=== PATIENT | female | born 1975 | race Caucasian/White ===

== ENCOUNTER 2016-11-23 10:09 | Emergency (ER) | payer MEDICARE, MEDICAID ==
--- NOTE | 2016-11-23 11:38 | UC ---
Throat Pain/Nasal Frandy HPI - HPI Summary HPI Summary: Patient has had sore throat, for the past few days, today left sided sinus pressure, pain behind eye in in the left ear. - History of Current Complaint Chief Complaint: UCGeneralIllness Stated Complaint: SORE THROAT,SINUS,EAR PAIN Time Seen by Provider: 11/23/16 11:08 Hx Obtained From: Patient Hx Last Menstrual Period: 11/20/16 ?: No Onset/Duration: Sudden Onset, Lasting Days Severity: Severe Associated Signs & Symptoms: Positive: Dysphagia, Sinus Discomfort - Epiglottits Risk Factors Epiglottis Risk Factors: Negative - Allergies/Home Medications Allergies/Adverse Reactions: Allergies Allergy/AdvReac Type Severity Reaction Status Date / Time Diphenhydramine AdvReac Severe Heart race Verified 11/29/15 14:49 [From Benadryl] Ketorolac Tromethamine AdvReac Severe migraines Verified 11/29/15 14:49 [From Toradol] Metoclopramide [From Reglan] AdvReac Severe heart Verified 11/29/15 14:49 race, anxiety Zolpidem [From Ambien] AdvReac Severe DISORENTATI Verified 11/29/15 14:49 ON Eszopiclone [From Lunesta] AdvReac Intermediate DISORENTATI Verified 11/29/15 14 :49 ON Ibuprofen AdvReac Abdominal Verified 11/29/15 14:49 Pain seasonal allergy Allergy Eyes Uncoded 11/29/15 14:49 Itchy/Swollen/Red/Watery avoiding acetaminophen due AdvReac Unknown Uncoded 11/29/15 14:49 to overu Reaction Details Home Medications: Home Medications Albuterol/Ipratropium RESP(NF) [Combivent Respimat(NF)] 1 aer IN DAILY 11/23/16 [History Confirmed 11/23/16] Cetirizine* [ZyrTEC 10 MG TAB*] 10 mg PO DAILY 11/23/16 [History Confirmed 11/23] PMH/Surg Hx/FS Hx/Imm Hx Previously Healthy: Yes Endocrine History Of: Denies: Diabetes, Thyroid Disease Cardiovascular History Of: Denies: Cardiac Disorders, Hypertension, Pacemaker/ICD Respiratory History Of: Reports: COPD, Asthma GI/ History Of: Denies: Ulcer, Renal Disease - Surgical History Surgical History: Yes Surgery Procedure, Year, and Place: Tubal ligation,,colonoscopy, endoscopy,saliva gland cyst removed, PE tubes, ABDOMINAL ARTHROSCOPIC SX. - Family History Known Family History: Positive: Unknown - Social History Alcohol Use: None Alcohol Amount: states has not had ETOH is "quite awhile" Substance Use Type: None Substance Use Comment - Amount & Last Used: unknown Smoking Status (MU): Former Smoker Type: Cigarettes Amount Used/How Often: 6 cigarettes daily Length of Time of Smoking/Using Tobacco: 28 yrs Have You Smoked in the Last Year: Yes When Did the Patient Quit Smoking/Using Tobacco: 1 year ago Household Exposure Type: Cigarettes - Immunization History Most Recent Influenza Vaccination: no Most Recent Tetanus Shot: within 5 years Review of Systems Constitutional: Negative Skin: Negative Eyes: Negative ENT: Dental Pain, Sore Throat, Ear Ache, Nasal Discharge Respiratory: Negative Cardiovascular: Negative Gastrointestinal: Negative Genitourinary: Negative Motor: Negative Neurovascular: Negative Musculoskeletal: Negative Neurological: Negative Psychological: Negative All Other Systems Reviewed And Are Negative: Yes Physical Exam Triage Information Reviewed: Yes Appearance: Well-Nourished, Ill-Appearing, Pain Distress Vital Signs: Initial Vital Signs Temp 97.9 F 11/23/16 10:45 Pulse 68 11/23/16 10:45 Resp 16 11/23/16 10:45 BP 92/61 11/23/16 10:45 Pulse Ox 100 11/23/16 10:45 Vital Signs Reviewed: Yes Eye Exam: Normal Eyes: Positive: Conjunctiva Clear ENT: Positive: Pharyngeal erythema, Nasal congestion, Nasal drainage, TM bulging Dental Exam: Normal Neck exam: Normal Neck: Positive: Supple, Nontender, No Lymphadenopathy Respiratory Exam: Normal Respiratory: Positive: Chest non-tender, Lungs clear, Normal breath sounds Cardiovascular Exam: Normal Cardiovascular: Positive: RRR, No Murmur, Pulses Normal Abdominal Exam: Normal Abdomen Description: Positive: Nontender, No Organomegaly, Soft Bowel Sounds: Positive: Present Musculoskeletal Exam: Normal Musculoskeletal: Positive: Strength Intact, ROM Intact, No Edema Neurological Exam: Normal Neurological: Positive: Alert, Muscle Tone Normal Psychological Exam: Normal Skin Exam: Normal Throat Pain/Nasal Course/Dx - Course Course Of Treatment: hx obtained, exam performed, meds reviewed, prescribed augmentin for sinusitis - Differential Dx/Diagnosis Differential Diagnosis/HQI/PQRI: Influenza, Laryngitis, Otitis Media, Pharyngitis, Sinusitis, URI Provider Diagnoses: sinusitis. ear pain. pharyngitis Discharge - Discharge Plan Condition: Stable Disposition: HOME Prescriptions: Amoxicillin/Clavulanate TAB* [Augmentin TAB 875*] 875 mg PO BID #20 tab Patient Education Materials: Sinusitis (ED) Referrals: Naun Archuleta MD [Primary Care Provider] - Additional Instructions: Take the medication as prescribed. Increase your fluid intake. ibuprofen for pain. and heat may help relieve the pain as well. follow up with any increasing symptoms.
[2016-11-23 11:48] VITALS: BP 142/85
== END 2016-11-23 11:46 | disposition home or self-care (01) ==
LOC: UCCORT 10:09
DX: J32.9 Chronic sinusitis, unspecified (principal); H92.02 Otalgia, left ear; J02.9 Acute pharyngitis, unspecified; Z88.5 Allergy status to narcotic agent; Z88.6 Allergy status to analgesic agent; Z88.8 Allergy status to other drugs, medicaments and biological substances; J44.9 Chronic obstructive pulmonary disease, unspecified; J45.909 Unspecified asthma, uncomplicated; R03.0 Elevated blood-pressure reading, without diagnosis of hypertension; Z87.891 Personal history of nicotine dependence
CPT/HCPCS: 99212; G0463

== ENCOUNTER 2017-02-03 18:05 | Emergency (ER) | payer MEDICARE, MEDICAID ==
[2017-02-03 19:01] VITALS: BP 91/59
--- NOTE | 2017-02-03 19:23 | UC ---
Throat Pain/Nasal Frandy HPI - HPI Summary HPI Summary: Ten days of congestion, cough, sinus pressure. This morning woke up with left eye irritation and discharge. No fever. No trauma. No loss of vision. - History of Current Complaint Chief Complaint: UCEye Stated Complaint: CONGESTION,SORE THROAT, EYE Time Seen by Provider: 02/03/17 18:49 Hx Obtained From: Patient Hx Last Menstrual Period: 01/18/17 ?: Yes Onset/Duration: Gradual Onset, Lasting Weeks, Still Present Severity: Mild Cough: Nonproductive Associated Signs & Symptoms: Positive: Hoarseness, Sinus Discomfort, Nasal Discharge - Epiglottits Risk Factors Epiglottis Risk Factors: Negative - Allergies/Home Medications Allergies/Adverse Reactions: Allergies Allergy/AdvReac Type Severity Reaction Status Date / Time Diphenhydramine AdvReac Severe Heart race Verified 11/29/15 14:49 [From Benadryl] Ketorolac Tromethamine AdvReac Severe migraines Verified 11/29/15 14:49 [From Toradol] Metoclopramide [From Reglan] AdvReac Severe heart Verified 11/29/15 14:49 race, anxiety Zolpidem [From Ambien] AdvReac Severe DISORENTATI Verified 11/29/15 14:49 ON Eszopiclone [From Lunesta] AdvReac Intermediate DISORENTATI Verified 11/29/15 14 :49 ON Ibuprofen AdvReac Abdominal Verified 11/29/15 14:49 Pain seasonal allergy Allergy Eyes Uncoded 11/29/15 14:49 Itchy/Swollen/Red/Watery avoiding acetaminophen due AdvReac Unknown Uncoded 11/29/15 14:49 to overu Reaction Details PMH/Surg Hx/FS Hx/Imm Hx Previously Healthy: Yes Endocrine History Of: Denies: Diabetes, Thyroid Disease Cardiovascular History Of: Denies: Cardiac Disorders, Hypertension, Pacemaker/ICD Respiratory History Of: Reports: COPD, Asthma GI/ History Of: Denies: Ulcer, Renal Disease - Surgical History Surgical History: Yes Surgery Procedure, Year, and Place: Tubal ligation,,colonoscopy, endoscopy,saliva gland cyst removed, PE tubes, ABDOMINAL ARTHROSCOPIC SX. - Family History Known Family History: Positive: Unknown Negative: Respiratory Disease - Social History Occupation: Employed Full-time Lives: With Family Alcohol Use: None Alcohol Amount: states has not had ETOH is "quite awhile" Substance Use Type: None Substance Use Comment - Amount & Last Used: unknown Smoking Status (MU): Former Smoker Type: Cigarettes Amount Used/How Often: 6 cigarettes daily Length of Time of Smoking/Using Tobacco: 28 yrs Have You Smoked in the Last Year: Yes When Did the Patient Quit Smoking/Using Tobacco: 1 year ago Household Exposure Type: Cigarettes - Immunization History Most Recent Influenza Vaccination: no Most Recent Tetanus Shot: within 5 years Review of Systems Constitutional: Negative Skin: Negative Eyes: Drainage, Eye Redness ENT: Sore Throat, Ear Ache, Nasal Discharge Respiratory: Negative Cardiovascular: Negative Gastrointestinal: Negative Genitourinary: Negative Motor: Negative Neurovascular: Negative Musculoskeletal: Negative Neurological: Negative Psychological: Negative All Other Systems Reviewed And Are Negative: Yes Physical Exam Triage Information Reviewed: Yes Appearance: No Pain Distress, Well-Nourished, Ill-Appearing - MILDLY, Thin Vital Signs: Initial Vital Signs Temp 99.8 F 02/03/17 18:56 Pulse 60 02/03/17 18:56 Resp 17 02/03/17 18:56 BP 91/59 02/03/17 18:56 Pulse Ox 100 02/03/17 18:56 Vital Signs Reviewed: Yes Eyes: Positive: Conjunctiva Inflamed - LEFT, Discharge - LEFT ENT: Positive: Normal ENT inspection, Hearing grossly normal, Pharynx normal, Nasal congestion, TM bulging, TM dull Dental Exam: Normal Neck exam: Normal Neck: Positive: Supple, Nontender, No Lymphadenopathy Respiratory Exam: Normal Respiratory: Positive: Chest non-tender, Lungs clear, Normal breath sounds, No respiratory distress, No accessory muscle use Cardiovascular Exam: Normal Cardiovascular: Positive: RRR, No Murmur, Pulses Normal Abdominal Exam: Normal Abdomen Description: Positive: Nontender, No Organomegaly, Soft Bowel Sounds: Positive: Present Musculoskeletal Exam: Normal Musculoskeletal: Positive: Strength Intact, ROM Intact Neurological Exam: Normal Psychological Exam: Normal Skin Exam: Normal Throat Pain/Nasal Course/Dx - Differential Dx/Diagnosis Differential Diagnosis/HQI/PQRI: Otitis Media, Sinusitis, URI Provider Diagnoses: LEFT CONJUNCTIVITIS; SINUSITIS Discharge - Discharge Plan Condition: Stable Disposition: HOME Prescriptions: Amoxicillin/Clavulanate TAB* [Augmentin TAB 875*] 875 mg PO BID #20 tab Tobramycin 0.3% OPHTH.RUDI* 1 drop LEFT EYE Q4H #1 btl Patient Education Materials: Sinusitis (ED), Conjunctivitis (ED) Forms: *Work Release Referrals: Naun Archuleta MD [Primary Care Provider] -
== END 2017-02-03 19:23 | disposition home or self-care (01) ==
LOC: UCCORT 18:05
DX: H10.32 Unspecified acute conjunctivitis, left eye (principal); J32.9 Chronic sinusitis, unspecified; J44.9 Chronic obstructive pulmonary disease, unspecified; Z88.5 Allergy status to narcotic agent; Z88.6 Allergy status to analgesic agent; Z88.8 Allergy status to other drugs, medicaments and biological substances; Z87.891 Personal history of nicotine dependence
CPT/HCPCS: 99212; G0463

== ENCOUNTER 2017-05-13 14:17 | Emergency (ER) | payer MEDICARE, MEDICAID ==
[2017-05-13 14:52] VITALS: BP 99/57
--- NOTE | 2017-05-13 15:05 | UC ---
Complaint Female HPI - HPI Summary HPI Summary: VAGINAL DISCHARGE X 2 DAYS , + FISHY ODOR AND IRRITATION NO DYSURIA, NO FEVER, NO CHILLS, ALSO C/O SINUS PAIN AND PRESSURE , NO COUGH , + NASAL CONGESTION , PND - History Of Current Complaint Chief Complaint: UCGeneralIllness Stated Complaint: PERSONAL/SINUS Time Seen by Provider: 05/13/17 14:32 Hx Obtained From: Patient Hx Last Menstrual Period: 04/19/17 ?: No Onset/Duration: Gradual Onset, Lasting Days - 2, Still Present Timing: Constant Severity Initially: Moderate Severity Currently: Moderate Character: Not Applicable Aggravating Factor(s): [place] Alleviating Factor(s): Nothing Associated Signs And Symptoms: Positive: Vaginal Discharge. Negative: Fever, Back Pain, Vaginal Bleeding/Discharge, Nausea, Vomiting(# Of Episodes =), Genital Swelling, Genital Blisters, Retained Foregin Body (Specify) Related Hx: Similar Episode/Dx as: - BV - Allergies/Home Medications Allergies/Adverse Reactions: Allergies Allergy/AdvReac Type Severity Reaction Status Date / Time Diphenhydramine AdvReac Severe Heart race Verified 11/29/15 14:49 [From Benadryl] Ketorolac Tromethamine AdvReac Severe migraines Verified 11/29/15 14:49 [From Toradol] Metoclopramide [From Reglan] AdvReac Severe heart Verified 11/29/15 14:49 race, anxiety Zolpidem [From Ambien] AdvReac Severe DISORENTATI Verified 11/29/15 14:49 ON Eszopiclone [From Lunesta] AdvReac Intermediate DISORENTATI Verified 11/29/15 14 :49 ON Ibuprofen AdvReac Abdominal Verified 11/29/15 14:49 Pain seasonal allergy Allergy Eyes Uncoded 11/29/15 14:49 Itchy/Swollen/Red/Watery avoiding acetaminophen due AdvReac Unknown Uncoded 11/29/15 14:49 to overu Reaction Details Home Medications: Home Medications Calcium 600 mg PO DAILY 05/13/17 [History Confirmed 05/13/17] Multiple Vitamin [Multivitamins] 1 cap PO DAILY 05/13/17 [History Confirmed ] Otc Collagen 05/13/17 [History] PMH/Surg Hx/FS Hx/Imm Hx - Additional Past Medical History Additional PMH: HX OF BV - Surgical History Surgical History: Yes Surgery Procedure, Year, and Place: Tubal ligation,,colonoscopy, endoscopy,saliva gland cyst removed, PE tubes, ABDOMINAL ARTHROSCOPIC SX. - Family History Known Family History: Positive: Unknown Negative: Respiratory Disease - Social History Alcohol Use: None Alcohol Amount: states has not had ETOH is "quite awhile" Substance Use Type: Prescribed Substance Use Comment - Amount & Last Used: unknown Smoking Status (MU): Former Smoker Type: Cigarettes Amount Used/How Often: 6 cigarettes daily Length of Time of Smoking/Using Tobacco: 28 yrs Have You Smoked in the Last Year: Yes When Did the Patient Quit Smoking/Using Tobacco: 1 year ago Household Exposure Type: Cigarettes - Immunization History Most Recent Influenza Vaccination: no Most Recent Tetanus Shot: within 5 years Review of Systems Constitutional: Negative Skin: Negative Eyes: Negative ENT: Nasal Discharge, Sinus Congestion, Sinus Pain/Tenderness Respiratory: Negative Cardiovascular: Negative Gastrointestinal: Negative All Other Systems Reviewed And Are Negative: Yes Physical Exam Triage Information Reviewed: Yes Appearance: Well-Appearing, No Pain Distress, Well-Nourished Vital Signs: Initial Vital Signs Temp 98.3 F 05/13/17 14:40 Pulse 74 05/13/17 14:40 Resp 20 05/13/17 14:40 BP 99/57 05/13/17 14:40 Pulse Ox 100 05/13/17 14:40 Vital Signs Reviewed: Yes Eyes: Positive: Conjunctiva Clear ENT: Positive: Normal ENT inspection, Hearing grossly normal, Pharyngeal erythema, Nasal congestion, Nasal drainage, TMs normal Neck exam: Normal Neck: Positive: Supple, Nontender, No Lymphadenopathy Respiratory: Positive: Chest non-tender, Lungs clear, Normal breath sounds Cardiovascular: Positive: RRR, No Murmur, Pulses Normal Abdominal Exam: Normal Abdomen Description: Positive: Nontender, Soft. Negative: CVA Tenderness (R), CVA Tenderness (L), Distended, Guarding Bowel Sounds: Positive: Present Skin Exam: Normal Complaint Female Dx - Differential Dx/Diagnosis Provider Diagnoses: BV. SINUSITIS Discharge - Discharge Plan Condition: Stable Disposition: HOME Prescriptions: Azithromycin TAB* [Zithromax TAB (Z-RANDA) 250 mg #6 tabs] 2 tab PO .TODAY, THEN 1 DAILY #1 randa Metronidazole [Flagyl 500 MG TAB] 500 mg PO BID #14 tab Patient Education Materials: Bacterial Vaginosis (ED), Sinusitis (ED) Referrals: Naun Archuleta MD [Primary Care Provider] - 7 Days
== END 2017-05-13 15:21 | disposition home or self-care (01) ==
LOC: UCCORT 14:17
DX: N76.0 Acute vaginitis (principal); J32.9 Chronic sinusitis, unspecified; Z88.6 Allergy status to analgesic agent; Z88.5 Allergy status to narcotic agent; Z88.8 Allergy status to other drugs, medicaments and biological substances; Z87.891 Personal history of nicotine dependence
CPT/HCPCS: 99212; G0463

== ENCOUNTER 2018-05-30 17:53 | Emergency (ER) | payer MEDICARE, MEDICAID ==
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
--- NOTE | 2018-05-30 20:33 | UC ---
Complaint Female HPI - HPI Summary HPI Summary: pt states she had a new relationship that included anal to vaginal intercourse. she has been having frequent-urgent urination with burning but also notes some general irritation to the area. she denies any discharge. she has a hx of uti's and thinks this is a uti. her pcp checked her urine today and noted blood but didn't tx with an antibiotic. pt feels she needs anantibiotic for this. no fever or abdominal pain but she does have a low back ache. - History Of Current Complaint Stated Complaint: URINARY Time Seen by Provider: 05/30/18 20:20 Hx Obtained From: Patient Hx Last Menstrual Period: 04/19/17 Onset/Duration: Gradual Onset Timing: Constant Aggravating Factor(s): Nothing Alleviating Factor(s): Nothing Associated Signs And Symptoms: Negative: Fever, Vaginal Bleeding/Discharge, Vaginal Discharge - Allergies/Home Medications Allergies/Adverse Reactions: Allergies Allergy/AdvReac Type Severity Reaction Status Date / Time diphenhydramine Allergy Unknown HEART RACES Verified 05/30/18 20:29 eszopiclone [From Lunesta] Allergy Unknown DISORENTATI Verified 05/30/18 20:29 ON ibuprofen Allergy Unknown AMDOMINAL Verified 05/30/18 20:29 PAIN ketorolac [From Toradol] Allergy Unknown MIGRANES Verified 05/30/18 20:29 metoclopramide [From Reglan] Allergy Unknown HEART Verified 05/30/18 20:29 RACES, ANXIETY zolpidem [From Ambien] Allergy Unknown DISORENTATI Verified 05/30/18 20:29 ON seasonal allergy Allergy Eyes Uncoded 05/30/18 20:29 Itchy/Swollen/Red/Watery avoiding acetaminophen due AdvReac Unknown Uncoded 05/30/18 20:29 to overu Reaction Details Home Medications: Home Medications Gabapentin CAP(*) [Neurontin 100 mg CAP(*)] 100 mg PO BEDTIME 05/30/18 [History Confirmed 05/30/18] Tumeric 05/30/18 [History] PMH/Surg Hx/FS Hx/Imm Hx - Additional Past Medical History Additional PMH: uti, chronic back pain, anxiety - Surgical History Surgical History: Yes Surgery Procedure, Year, and Place: Tubal ligation,,colonoscopy, endoscopy,saliva gland cyst removed, PE tubes, ABDOMINAL ARTHROSCOPIC SX. - Family History Known Family History: Positive: Unknown Negative: Respiratory Disease - Social History Occupation: Employed Full-time Alcohol Use: None Alcohol Amount: states has not had ETOH is "quite awhile" Substance Use Type: Prescribed Substance Use Comment - Amount & Last Used: unknown Smoking Status (MU): Former Smoker Type: Cigarettes Amount Used/How Often: 6 cigarettes daily Length of Time of Smoking/Using Tobacco: 28 yrs Have You Smoked in the Last Year: Yes When Did the Patient Quit Smoking/Using Tobacco: 1 year ago Household Exposure Type: Cigarettes - Immunization History Most Recent Influenza Vaccination: no Most Recent Tetanus Shot: within 5 years Vaccination Up to Date: Yes Review of Systems Constitutional: Negative Skin: Negative Eyes: Negative ENT: Negative Respiratory: Negative Cardiovascular: Negative Gastrointestinal: Negative Genitourinary: Dysuria, Frequency, Urgency, Vaginal/Penile Tenderness Motor: Negative Neurovascular: Negative Musculoskeletal: Negative Neurological: Negative Psychological: Negative Is Patient Immunocompromised?: No All Other Systems Reviewed And Are Negative: Yes Physical Exam Triage Information Reviewed: Yes Appearance: Well-Appearing Vital Signs Reviewed: Yes Eyes: Positive: Conjunctiva Clear ENT: Positive: Normal ENT inspection Neck: Positive: Supple, Nontender, No Lymphadenopathy Respiratory: Positive: Lungs clear, Normal breath sounds Cardiovascular: Positive: RRR, No Murmur Abdomen Description: Positive: Nontender, No Organomegaly, Soft. Negative: CVA Tenderness (R), CVA Tenderness (L), Distended, Guarding Bowel Sounds: Positive: Present Pelvic Exam: Positive: External Exam Normal, Speculum Exam Normal, No Cerv. Motion Tender, No Masses. Negative: Discharge, Lesions, Tender Adnexa, Tender Uterus Musculoskeletal: Positive: ROM Intact Neurological: Positive: Alert Psychological: Positive: Age Appropriate Behavior Skin Exam: Normal Diagnostics - Laboratory Diagnostic Studies Completed/Ordered: u/a=trace leuks. urine culture pending. pelvic cultures pending. Complaint Female Dx - Course Course Of Treatment: no overt std or vaginitis. will cover for possible uti. - Differential Dx/Diagnosis Provider Diagnoses: Dysuria Discharge - Sign-Out/Discharge Documenting (check all that apply): Patient Departure All imaging exams completed and their final reports reviewed: No Studies - Discharge Plan Condition: Stable Disposition: HOME Prescriptions: Sulfamethox/Trimethoprim DS* [Bactrim DS 800/160 TAB*] 1 tab PO BID #6 tab Patient Education Materials: Dysuria (ED) Referrals: Amarilis Calhoun PA [Primary Care Provider] - 7 Days - Billing Disposition and Condition Condition: STABLE Disposition: Home
[2018-05-30 20:40] VITALS: BP 107/61
[2018-05-30] MEDS ORDERED: Sulfamethox/Trimethoprim DS 800/160* TAB PO ONE (21:15)
--- NOTE | 2018-06-02 07:25 | UC ---
- Progress Note Progress Note: negative culture stop antibiotics recheck with PCP prn Discharge - Sign-Out/Discharge Documenting (check all that apply): Patient Departure All imaging exams completed and their final reports reviewed: No Studies - Discharge Plan Condition: Stable Disposition: HOME Prescriptions: Sulfamethox/Trimethoprim DS* [Bactrim DS 800/160 TAB*] 1 tab PO BID #6 tab Patient Education Materials: Dysuria (ED) Referrals: Amarilis Calhoun PA [Primary Care Provider] - 7 Days - Billing Disposition and Condition Condition: STABLE Disposition: Home
== END 2018-05-30 21:46 | disposition home or self-care (01) ==
LOC: UCCORT 17:53
DX: R30.0 Dysuria (principal); Z88.8 Allergy status to other drugs, medicaments and biological substances; Z88.6 Allergy status to analgesic agent
CPT/HCPCS: 81003; 87086; 87480; 87491; 87510; 87591; 87661; 99212; A9270-GY; G0463

== ENCOUNTER 2019-07-16 14:43 | Emergency (ER) | payer MEDICARE, MEDICAID ==
--- OUTSIDE RECORDS SUMMARY | 2019-07-16 15:21 | XMS REPORT | Continuity of Care Document ---
:1975 External Reference #:[id number] Author Name Colleen Garrison, PNP-BC, [employer]OR [employer], Ibclc Address [address] [place] [id number] Care Team Providers Name Role Phone Amarilis Calhoun PA - Medical Care Team Information Color Printer Operator [phone] Problems Active Problems Provider Date Disturbance in sleep behavior Amarilis Calhoun PA Onset: 11/30/2017 Anxiety state Amarilis Calhoun PA Onset: 11/30/2017 Social History Type Date Description Comments Sex Unknown Cigarette Use Negative For Former Cigarette Smoker ETOH Use Occasionally consumes alcohol Tobacco Use Start: Unknown End: Patient is a former smoker Quit in Jun 2016 Unknown Smoking Status Reviewed: 07/03/19 Patient is a former smoker Quit in Jun 2016 Enjoy Exercising Patient enjoys exercising Tattoo/Piercing Tattoo Smoke Alarms Yes Smoke Alarms Carbon Monoxide Detector: Yes Allergies, Adverse Reactions, Alerts Active Allergies Reaction Severity Comments Date Reglan Benadryl Toradol Medications Active Medications SIG Qnty Indications Ordering Date Provider Nitrofurantoin 1 by mouth twice a 14caps R30.0 Colleen Garrison, 07/03/2019 Monohyd Macro day PNP-BC, [employer], 100mg Ibclc Capsules Fluconazole 1 by mouth today 2tabs R30.0 Cloleen Garrison, 07/03/2019 150mg if no improvement PNP-BC, [employer], Tablets in 3 days take the Ibclc 2nd pill Amphetamine-Dextroamp 1 tab by mouth 30tabs F90.2 Shabnam Dudley, 2018 hetamine daily ref MD 10mg Tablets #[id number] Ventolin HFA 2 puffs prior to 16gm J45.990 Shabnam Dudley, 08/10/2018 sports and every 4 MD 108(90Base) mcg/Act hours as needed Aerosol for cough and wheeze Cetirizine HCL 1 tab by mouth 30tabs Shabnam Dudley, 08/10/2018 10mg every day MD Tablets TENS Therapy use with tens unit 2Boxes M54.5 EmeraldTonie dodge, 10/12/2017 Replacement Back Pads as directed daily Krishna Mis Multi For Her Unknown Tablets Vitamin B one po daily Unknown Vitamin C one po daily Unknown Naproxen take 1 tablet by 180tabs Shabnam Dudley, 500mg Tablets mouth twice daily History Medications Diflucan 1 tab by mouth 2tabs Shabnam Dudley, 06/23/2019 - 150mg Tablets today. january 06/30/2019 repeat in 1 week if needed Amoxicillin 1 tabs twice a 20tabs J02.9 Antonino, 06/16/2019 - 875mg Tablets day x 10 days Paola Jhaveri, 07/03/2019 [employer] Fluticasone Propionate 1 spray to 9.9units J06.9 Shabnam Dudley, 2018 - each nare 05/04/2019 50mcg/Act Suspension twice a day Methylprednisolone take tablets 21units Shabnam Dudley, 04/03/2019 - 4mg TBPK as 04/08/2019 directed-dose pack Medications Administered in Office Medication SIG Qnty Indications Ordering Provider Date PPD Injection Family Nurse 02/14/2019 PPD Injection Amarilis Calhoun PA 04/12/2018 Depomedroxyporgesterone 150MG Ambrosio Cano M.D. 12/25/2010 Injection Immunizations CPT Code Status Date Vaccine Lot # [id number] Given 08/10/2018 Influenza Virus Vaccine, Quadrivalent, 36 Mos+, [id number] .[id number] Vital Signs Date Vital Result Comment 07/03/2019 2:49pm BP Systolic 108 mmHg BP Diastolic 70 mmHg Body Temperature 98.0 F Heart Rate 92 /min Respiratory Rate 18 /min Weight 123.00 lb O2 % BldC Oximetry 99 % 06/16/2019 9:07am BP Systolic 110 mmHg BP Diastolic 60 mmHg Body Temperature 98.0 F Heart Rate 87 /min Respiratory Rate 16 /min Weight 123.38 lb O2 % BldC Oximetry 98 % Pain Level 5 Results Test Date Facility Test Result H/L Range Note Urine Dipstick 07/03/2019 [facility] Color Yellow Yellow Ua Clarity Cloudy Clear Ua Leuko 3+ High Negative Ua Nitrite Negative Negative Ua Urobilinogen 3.5 High 0.2 - 1.0 E.U./dL Ua Protein Negative Negative Ua PH 6.0 Low 6.5-7.5 Ua Blood 1+ High Negative Ua Specific [place] 1.010 1.010-1.030 Ua Ketones Negative Negative Ua Bilirubin Negative Negative Ua Glucose Negative Negative Chlam/GC/Trichomonas 01/30/[address] Ur Trichomonas NEGATIVE Negative 1 PCR, Ur [address] vaginalis,PCR [place], [place] [id number] [phone] Ur Chlamydia trachomatis,PCR NEGATIVE Negative Ur Neisseria gonorrhoeae,PCR NEGATIVE Negative 2 HIV 1/2 Rapid 01/30/[address] HIV 1/2 Non-Reactive [address] [place]old [place], [place] [id number] [phone] Hepatitis 01/30/[address] Hepatitis A Negative Negative Evaluation [address] Antibody IgM [place], [place] [id number] [phone] HBsAg Screen [Ref Lab] Negative Negative Hepatitis B Core IgM Negative Negative HCV Signal/Cutoff ratio < 0.1 s/corat 0.0-0.9 4 Laboratory test 01/30/[address] Treponema Negative Negative [address] [place] [address] Sebastian [phone] 1 Z11.3 2 A negative result for either C. trachomatis and/or N. gonorrhoeae does not preclued an infection because results are dependent on adequate specimen collection, absence of inhibitors, and sufficient DNA to be detected. 3 NOTE: A NON-REACTIVE RESULT INDICATES THAT HIV 1/2 ANTIBODIES HAVE NOT BEEN FOUND IN THIS PATIENT SPECIMEN. A NON-REACTIVE RESULT, HOWEVER, DOES NOT PRECLUDE PREVIOUS EXPOSURE OF INFECTION WITH HIV 1/2. Method: Uni-Gold Recombigen HIV 1/2 Rapid Immunoassay [employer] * [place] STATE LAW PROHIBITS THE REDISCLOSURE OF THIS RESULT * * TO ANY UNAUTHORIZED DEMOCRAT. * 4 INFCE Result Units: s/co ratio Negative: < 0.8 Indeterminate: 0.8 - 0.9 Positive: > 0.9 The CDC recommends that a positive HCV antibody result be followed up with a HCV Nucleic Acid Amplification test (366278). 5 Performed at: [facility] [id number] Line Haul Owner Operator: Carole Muniz MD, Phone: [phone] Performed at: [facility] [id number] Line Haul Owner Operator: Brock Ho MD, Phone: [phone] Procedures Date Code Description Status 07/14/2018 [id number] Mammogram Completed 09/13/2014 [id number] Bone Mineral Density Test Completed 09/13/2009 [id number] Colonoscopy Completed Medical Devices Description No Information Available Encounters Type Date Location Provider Dx Diagnosis Office Visit 06/16/2019 [facility] Antonino J02.9 Acute pharyngitis, 9:00a KISHOR Bhatti unspecified J06.9 Acute upper respiratory infection, unspecified Office Visit 05/09/2019 Family Calhoun F90.2 Attention-deficit 11:15a ALAN Chaudhry hyperactivity disorder, RD combined type R00.0 Tachycardia, unspecified Office Visit 04/24/2019 2:15p Family Amarilis Bird J06.9 Acute upper West FRANCISCO J PHILLIPS respiratory infection, unspecified Office Visit 04/20/2019 2:00p Family Medicine Garret Tai J02.9 Acute pharyngitis, Layton MARX MD unspecified Office Visit 04/11/2019 10:30a Family Amarilis Bird, M54.5 Low back pain [address] ALAN M25.569 Pain in unspecified knee 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, combined type Office Visit 02/16/2019 1:45p Family Medicine Family Nurse Z11.[address] screening for respiratory tuberculosis Office Visit 01/30/2019 9:30a Family Medicine Unique, M25.569 Pain in unspecified [address] ALAN Olmos knee M54.5 Low back pain G47.9 Sleep disorder, unspecified 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 Z11.3 Encntr screen for infections w sexl mode of transmiss Assessments Date Code Description Provider 07/03/2019 R30.0 Dysuria Colleen Garrison, PNP-BC, [employer] SU[employer], Ibclc 06/16/2019 J02.9 Acute pharyngitis, unspecified [place] Paola M., [employer] SUPER[employer] 06/16/2019 J06.9 Acute upper respiratory infection, [place], Paola MEmir, COR[employer]AL SUPER[employer] unspecified 05/09/2019 F90.2 Attention-deficit hyperactivity Amarilis Calhoun PA disorder, combined type 05/09/2019 R00.0 Tachycardia, unspecified Amarilis Calhoun PA 04/24/2019 J06.9 Acute upper respiratory infection, Amarilis Calhoun PA unspecified 04/20/2019 J02.9 Acute pharyngitis, unspecified Garret Tai MD 04/11/2019 M54.5 Low back pain Amarilis Calhoun PA 04/11/2019 M25.569 Pain in unspecified knee Amarilis Calhoun PA 04/11/2019 F90.2 Attention-deficit hyperactivity Amarilis Calhoun PA disorder, combined type 02/16/2019 Z11.1 Encounter for screening for Shabnam Dudley MD respiratory tuberculosis 02/16/2019 Z11.1 Encounter for screening for Family Nurse respiratory tuberculosis 02/14/2019 Z11.1 Encounter for screening for Shabnam Dudley MD respiratory tuberculosis 02/14/2019 Z11.1 Encounter for screening for Family Nurse respiratory tuberculosis 01/30/2019 M25.569 Pain in unspecified knee Amarilis Calhoun PA 01/30/2019 M54.5 Low back pain Amarilis Calhoun PA 01/30/2019 G47.9 Sleep disorder, unspecified Amarilis Calhoun PA 01/30/2019 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 Amarilis Calhoun PA 01/30/2019 Z11.3 Encounter for screening for Amarilis Calhoun PA infections with a predominantly Plan of Treatment Future Appointment(s):08/08/2019 10:00 am - Amarilis Calhoun PA at [facility] RD07/03/2019 - Colleen Garrison, PNP-BC, CORRECTIONAL SUPERVISOR [employer], BbnupV97.0 DysuriaNew Medication:Nitrofurantoin Monohyd Macro 100 mg - 1 by mouth twice a dayFluconazole 150 mg - 1 by mouth today if no improvement in 3 days take the 2nd pillNew Labs:Urine Culture, Ordered: 07/03/19Chlam/GC/Trichomonas PCR, Ur, Ordered: 07/03/19Comments:we'll call you with the lab results once they are in. Functional Status Functional Condition Comment Date Status Independent with all ADL's Active Mental Status Description No Information Available Referrals Refer to Reason for Referral Status Appt Date Thomas Beth MD Chronic back pain. Patient would like to resume Sent treatment with Dr. Beth. [address] [address] [place] [address] [phone]
--- OUTSIDE RECORDS SUMMARY | 2019-07-16 15:22 | XMS REPORT | Continuity of Care Document ---
:1975 External Reference #:[id number] Author Name Paola Muñiz FNP (transmitted by agent of provider Cherry Travis) Address [address] [place] [phone] Care Team Providers Name Role Phone Amarilis Calhoun PA - Medical Care Team Information Senior Mobile Solutions Architect [phone] Problems Active Problems Provider Date Disturbance in sleep behavior Amarilis Calhoun PA Onset: 11/30/2017 Anxiety state Amarilis Calhoun PA Onset: 11/30/2017 Social History Type Date Description Comments Sex Unknown Cigarette Use Negative For Former Cigarette Smoker ETOH Use Occasionally consumes alcohol Tobacco Use Start: Unknown End: Patient is a former smoker Quit in Jun 2016 Unknown Smoking Status Reviewed: 06/16/19 Patient is a former smoker Quit in Jun 2016 Enjoy Exercising Patient enjoys exercising Tattoo/Piercing Tattoo Smoke Alarms Yes Smoke Alarms Carbon Monoxide Detector: Yes Allergies, Adverse Reactions, Alerts Active Allergies Reaction Severity Comments Date Reglan Benadryl Toradol Medications Active Medications SIG Qnty Indications Ordering Provider Date Diflucan 1 tab by mouth 2tabs Shabnam Dudley, 06/23/2019 150mg today. may repeat Tablets in 1 week if needed Amoxicillin 1 tabs twice a 20tabs J02.9 Antonino, 06/16/2019 875mg day x 10 days KISHOR Bhatti Tablets Amphetamine-Dextroam 1 tab by mouth 30tabs F90.2 Shabnam Dudley, 2018 phetamine daily ref MD 10mg #[id number] Tablets Ventolin HFA 2 puffs prior to 16gm J45.990 Shabnam Dudley, 08/10/2018 sports and every MD 108(90Base) mcg/Act 4 hours as needed Aerosol for cough and wheeze Cetirizine HCL 1 tab by mouth 30tabs Shabnam Dudley, 08/10/2018 10mg every day MD Tablets TENS Therapy use with tens 2Boxes M54.5 Tonie Corbin M.D. 10/12/2017 Replacement Back unit as directed Pads daily Misc Multi For Her Unknown Tablets Vitamin B one po daily Unknown Vitamin C one po daily Unknown Naproxen take 1 tablet by 180tabs Shabnam Dudley, 500mg mouth twice daily MD Tablets History Medications Fluticasone Propionate 1 spray to 9.9units J06.9 Shabnam Dudley, 2018 - each nare 05/04/2019 50mcg/Act Suspension twice a day Methylprednisolone take tablets 21units Shabnam Dudley, 04/03/2019 - 4mg TBPK as MD 04/08/2019 directed-dose pack Medications Administered in Office Medication SIG Qnty Indications Ordering Provider Date PPD Injection Family Nurse 02/14/2019 PPD Injection Amarilis Calhoun PA 04/12/2018 Depomedroxyporgesterone 150MG Ambrosio Cano M.D. 12/25/2010 Injection Immunizations CPT Code Status Date Vaccine Lot # [id number] Given 08/10/2018 Influenza Virus Vaccine, Quadrivalent, 36 Mos+, [id number] .[id number] Vital Signs Date Vital Result Comment 06/16/2019 9:07am BP Systolic 110 mmHg BP Diastolic 60 mmHg Body Temperature 98.0 F Heart Rate 87 /min Respiratory Rate 16 /min Weight 123.38 lb O2 % BldC Oximetry 98 % Pain Level 5 05/09/2019 11:14am BP Systolic 102 mmHg BP Diastolic 60 mmHg Body Temperature 97.1 F Heart Rate 85 /min Respiratory Rate 18 /min Height 66 inches 5'6" Weight 120.00 lb BMI (Body Mass Index) 19.4 kg/m2 BSA (Body Surface Area) 1.61 m2 [place] body weight in kilograms 59 kg O2 % BldC Oximetry 99 % Results Test Date Facility Test Result H/L Range Note Chlam/GC/Tri 01/30/[address] [facility] [address] Ur Trichomonas NEGATIVE Negative [address] vaginalis,PCR [place], [place] [address] [phone] Ur Chlamydia trachomatis,PCR NEGATIVE Negative Ur Neisseria gonorrhoeae,PCR NEGATIVE Negative 2 HIV 1/2 Rapid 01/30/[address] HIV 1/2 Non-Reactive [address] [place] [address] [phone] Hepatitis 01/30/[address] Hepatitis A Negative Negative Evaluation [address] [place] [address] [phone] HBsAg Screen [Ref Lab] Negative Negative Hepatitis B Core IgM Negative Negative HCV Signal/Cutoff ratio < 0.1 s/corat 0.0-0.9 4 Laboratory test 01/30/[address] Treponema Negative Negative [address] [place] [address] Mower [phone] 1 Z11.3 2 A negative result for [...] Method: Uni-Gold Recombigen HIV 1/2 Rapid Immunoassay [employer] * [place] STATE LAW PROHIBITS THE REDISCLOSURE OF THIS RESULT * * TO ANY UNAUTHORIZED LIBERTARIAN. * 4 INFCE Result Units: s/co ratio Negative: < 0.8 Indeterminate: 0.8 - 0.9 Positive: > 0.9 The CDC recommends that a positive HCV antibody result be followed up with a HCV Nucleic Acid Amplification test (056677). 5 Performed at: - [facility] [id number] Tub Puller: Carole Muniz MD, Phone: [phone] Performed at: - [facility] [id number] Tub Puller: Brock Ho MD, Phone: [phone] Procedures Date Code Description Status 07/14/2018 [id number] Mammogram Completed 09/13/2014 [id number] Bone Mineral Density Test Completed 09/13/2009 [id number] Colonoscopy Completed Medical Devices Description No Information Available Encounters Type Date Location Provider Dx Diagnosis Office Visit 06/16/2019 [facility] Cecilio Muñiz02.9 Acute pharyngitis, 9:00a KISHOR Bhatti unspecified J06.9 Acute upper respiratory infection, unspecified Office Visit 05/09/2019 Family Calhoun F90.2 Attention-deficit 11:15a Medicine ALAN Houston hyperactivity disorder, RD combined type R00.0 Tachycardia, unspecified Office Visit 04/24/2019 2:15p Family Medicine Amarilis Calhoun J06.9 Acute upper West FRANCISCO J PHILLIPS respiratory infection, unspecified Office Visit 04/20/2019 2:00p Family Medicine Garret Tai J02.9 Acute pharyngitis, Layton MARX MD unspecified Office Visit 04/11/2019 10:30a Family Amarilis Bird M54.5 Low back pain West FRANCISCO J PA M25.569 Pain in unspecified knee 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, combined type Office Visit 02/16/2019 1:45p Family Medicine Family Nurse Z11.1 Encounter for West FRANCISCO J screening for respiratory tuberculosis Office Visit 01/30/2019 9:30a Family Meli Calhoun M25.569 Pain in unspecified [address] ALAN Olmos knee M54.5 Low back pain G47.9 Sleep disorder, unspecified 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 Z11.3 Encntr screen for infections w sexl mode of transmiss Assessments Date Code Description Provider 06/16/2019 Cecilio02.9 Acute pharyngitis, unspecified Paola Muñiz FNP 06/16/2019 J06.9 Acute upper respiratory infection, Paola Muñiz, SETTER [employer] unspecified 05/09/2019 F90.2 Attention-deficit hyperactivity Amarilis Calhoun [...] 10:00 am - Amarilis Calhoun PA at [facility] RD06/16/2019 - Paola Muñiz, FNPJ02.9 Acute pharyngitis, unspecifiedNew Medication:Amoxicillin 875 mg - 1 tabs twice a day x 10 daysComments:Warm saltwater gargles, Get lots of rest. Maintain good clear fluid intake to stay well hydrated. Frequent handwashing to prevent spread of germs. Please avoid exposure to tobacco smoke and/or polluted air. Take Tylenol (acetaminophen), Advil(ibuprofen), or alleve(naproxen) as needed for fever or aches, dosage according to package directions. Please follow-up with your primary care provider within 1 week for recheck.You can return to work or school when fever free for 24 hours without the use of fever reducing medication.-J06.9 Acute upper respiratory infection, unspecifiedComments:Get lots of rest. Maintain good clear fluid intake to stay well hydrated. Frequent handwashing to prevent spread of germs. Please avoid exposure to tobacco smoke and/or polluted air. You can use [place] and cold medications such as Afrin nasal spray and robitussin to help with symptoms. Take Tylenol (acetaminophen) , Advil(ibuprofen), or alleve(naproxen) as needed for fever or aches, dosage according to package directions. Please follow-up with your primary care provider within 1 week for recheck. You can return to work or school when fever free for 24 hours without the use of fever reducing medication.Thank you for choosing the [facility]. We hope that you will be feeling better soon. Any condition can change and some diseases may worsen despite proper treatment. Other problems maybegin with vague or unusual symptoms and only over time will the pproblem become more clear, making it possible to arrive at the correct diagnosis. Your visit today is not a substitute for, or an effort to provide complete medical care. In most cases, you should let your primary care doctor check you again. Tell your doctor about any new or lasting problems. If you do not have a primary care provider, a list of available providers can be given to you. All x-rays are interpreted by a radiologist, If you had cultures done today , results will be available in 72 hours, depending on specimen Functional Status Functional Condition Comment Date Status Independent with all ADL's Active Mental Status Description No Information Available Referrals Refer to Reason for Referral Status Appt Date Thomas Beth MD Chronic back pain. Patient would like to resume Sent treatment with Dr. Beth. [address] [address] [place] [address] [phone]
--- OUTSIDE RECORDS SUMMARY | 2019-07-16 15:22 | XMS REPORT | Continuity of Care Document ---
:1975 External Reference #:[id number] Author Name Paola Muñiz FNP Address [address] [place] [address] Care Team Providers Name Role Phone Amarilis Calhoun PA - Medical Care Team Information Embryology Teacher [phone] Problems Active Problems Provider Date Disturbance in [...] Medications SIG Qnty Indications Ordering Provider Date Amoxicillin 1 tabs twice a 20tabs J02.9 Antonino, 06/16/2019 875mg day x 10 days KISHOR Bhatti Tablets Amphetamine-Dextroam 1 tab by mouth 30tabs F90.2 Shabnam Dudley, 2018 phetamine daily ref MD 10mg #[id number] Tablets Ventolin HFA 2 puffs prior to 16gm J45.990 Shabnam Dudley, 08/10/2018 sports and every MD 108(90Base) mcg/Act 4 hours as needed Aerosol for cough and wheeze Cetirizine HCL 1 tab by mouth 30tabs Shabnam Dudley, 08/10/2018 10mg every day Tablets TENS Therapy use with tens 2Boxes [...] CPT Code Status Date Vaccine Lot # [id number] Given 08/10/2018 Influenza Virus Vaccine, Quadrivalent, 36 Mos+, [id number] .[id number] Vital Signs Date Vital Result Comment [...] kg/m2 BSA (Body Surface Area) 1.61 m2 [place] body weight in kilograms 59 kg O2 % BldC Oximetry 99 % Results Test Date Facility Test Result H/L Range Note Chlam/GC/Tri 01/30/[address] [facility] [address] [facility] Trichomonas NEGATIVE Negative [address] vaginalis,PCR PCR, [place] [address] [phone] Ur Chlamydia trachomatis,PCR NEGATIVE Negative Ur Neisseria gonorrhoeae,PCR NEGATIVE Negative 2 HIV 1/2 Rapid 01/30/[address] [facility] [address] [address] HIV 1/2 Non-Reactive [address] [place] [address] [phone] Hepatitis 01/30/[address] Hepatitis A Negative Negative Evaluation [address] Antibody IgM [place], [place] [id number] [phone] HBsAg Screen [Ref Lab] Negative Negative Hepatitis B Core IgM Negative Negative HCV Signal/Cutoff ratio < 0.1 s/corat 0.0-0.9 4 Laboratory test 01/30/[address] [facility] Treponema Negative Negative [address] [place] [address] [place] [phone] 1 Z11.3 2 A negative result for [...] Method: Uni-Gold Recombigen HIV 1/2 Rapid Immunoassay [facility] * [place] STATE LAW PROHIBITS THE REDISCLOSURE OF THIS RESULT * * TO ANY UNAUTHORIZED REPUBLICAN. * 4 INFCE Result Units: s/co ratio Negative: < 0.8 Indeterminate: 0.8 - 0.9 Positive: > 0.9 The CDC recommends that a positive HCV antibody result be followed up with a HCV Nucleic Acid Amplification test (370168). 5 Performed at: [address] [id number] Quality Assurance Assistant: Carole Muniz MD, Phone: [phone] Performed at: [address] [id number] Quality Assurance Assistant: Brock Ho MD, Phone: [phone] Procedures Date Code Description Status 07/14/2018 [id number] Mammogram Completed 09/13/2014 [id number] Bone Mineral Density Test Completed 09/13/2009 [id number] Colonoscopy Completed Medical Devices Description No Information Available Encounters Type Date Location Provider Dx Diagnosis Office Visit 05/09/2019 Family Medicine Amarilis Calhoun, F90.2 Attention- deficit 11:15a [address] [place] hyperactivity disorder, combined type R00.0 Tachycardia, unspecified Office Visit 04/24/2019 2:15p Family Medicine Amarilis Calhoun J06.[address] [place] respiratory infection, unspecified Office Visit 04/20/2019 2:00p Family Medicine Garret Tai J02.9 Acute pharyngitis, [address] unspecified Office Visit 04/11/2019 10:30a Family Medicine Amarilis Calhoun, M54.5 Low back pain [address] [place] M25.569 Pain in unspecified knee 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, combined type Office Visit 02/16/2019 1:45p Family Medicine Family Nurse Z11.[address] screening for respiratory tuberculosis Office Visit 01/30/2019 9:30a Family Medicine Unique M25.569 Pain in unspecified [address] ALAN Olmos knee M54.5 Low back pain G47.9 Sleep disorder, unspecified 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 Z11.3 Encntr screen for infections w sexl mode of transmiss Assessments Date Code Description Provider 06/16/2019 J02.9 Acute pharyngitis, unspecified Spence-Paola Rocha, ACTIVITIES OFFICER 06/16/2019 J06.9 Acute upper respiratory infection, Paola Muñiz, ACTIVITIES OFFICER unspecified 05/09/2019 F90.2 Attention-deficit hyperactivity Amarilis Calhoun [...] 10:00 am - Amarilis Calhoun PA at [facility] RD06/16/2019 - Paola Muñiz, FNPJ02.9 Acute pharyngitis, unspecifiedNew Medication:Amoxicillin 875 mg - 1 tabs twice a day x 10 daysNew Labs:Rapid Group A Strep, Ordered: 06/16/19Comments:Warm saltwater gargles, Get lots of rest. Maintain [...] robitussin to help with symptoms. Take Tylenol (acetaminophen), Advil( ibuprofen), or alleve(naproxen) as needed for fever or [...] Description No Information Available Referrals Refer to Dr Reason for Referral Status Appt Date Thomas Beth MD Chronic back pain. Patient would like to resume Sent treatment with Dr. Beth. [address] [place] [id number] [phone]
[2019-07-16 15:28] VITALS: BP 99/70
--- NOTE | 2019-07-16 15:52 | UC ---
Complaint Female HPI - HPI Summary HPI Summary: Had a UTI 3 weeks ago. Rx with 7 days of macrobid. Sx recurrent x 4 days. No fevers. - History Of Current Complaint Chief Complaint: UCGU Stated Complaint: URINARY Time Seen by Provider: 07/16/19 15:33 Hx Last Menstrual Period: 04/19/17 ?: No Onset/Duration: Sudden Onset, Lasting Days - 4, Still Present, Worse Since - onset Timing: Constant Severity Initially: Mild Severity Currently: Moderate Pain Intensity: 4 Character: Sharp, Burning, Cramping Aggravating Factor(s): Urination Associated Signs And Symptoms: Positive: Negative - Allergies/Home Medications Allergies/Adverse Reactions: Allergies Allergy/AdvReac Type Severity Reaction Status Date / Time diphenhydramine Allergy Unknown HEART RACES Verified 07/16/19 15:29 eszopiclone [From Lunesta] Allergy Unknown DISORENTATI Verified 07/16/19 15:29 ON ibuprofen Allergy Unknown AMDOMINAL Verified 07/16/19 15:29 PAIN ketorolac [From Toradol] Allergy Unknown MIGRANES Verified 07/16/19 15:29 metoclopramide [From Reglan] Allergy Unknown HEART Verified 07/16/19 15:29 RACES, ANXIETY zolpidem [From Ambien] Allergy Unknown DISORENTATI Verified 07/16/19 15:29 ON seasonal allergy Allergy Eyes Uncoded 07/16/19 15:29 Itchy/Swollen/Red/Watery avoiding acetaminophen due AdvReac Unknown Uncoded 07/16/19 15:29 to overu Reaction Details Home Medications: Home Medications Dextroamphetamine/Amphetamine [Adderall 10 mg-] 1 tab PO DAILY 07/16/19 [ History Confirmed 07/16/19] Naproxen [Naproxen 500 mg tab] 500 mg PO DAILY 07/16/19 [History Confirmed 07/16] PMH/Surg Hx/FS Hx/Imm Hx Previously Healthy: Yes - Surgical History Surgical History: Yes Surgery Procedure, Year, and Place: Tubal ligation,,colonoscopy, endoscopy,saliva gland cyst removed, PE tubes, ABDOMINAL ARTHROSCOPIC SX. - Family History Known Family History: Positive: Unknown, Diabetes Negative: Respiratory Disease - Social History Occupation: Employed Full-time Lives: With Family Alcohol Use: None Alcohol Amount: states has not had ETOH is "quite awhile" Substance Use Type: Prescribed Substance Use Comment - Amount & Last Used: unknown Smoking Status (MU): Former Smoker Type: Cigarettes Amount Used/How Often: 6 cigarettes daily Length of Time of Smoking/Using Tobacco: 28 yrs Have You Smoked in the Last Year: Yes When Did the Patient Quit Smoking/Using Tobacco: 2017 Household Exposure Type: Cigarettes - Immunization History Most Recent Influenza Vaccination: no Most Recent Tetanus Shot: within 5 years Vaccination Up to Date: Yes Review of Systems All Other Systems Reviewed And Are Negative: Yes Genitourinary: Positive: Dysuria, Frequency, Urgency Physical Exam Triage Information Reviewed: Yes Appearance: Well-Appearing, No Pain Distress, Well-Nourished Vital Signs: Initial Vital Signs Temp 99.0 F 07/16/19 15:21 Pulse 78 07/16/19 15:21 Resp 18 07/16/19 15:21 BP 99/70 07/16/19 15:21 Pulse Ox 100 07/16/19 15:21 Vital Signs Reviewed: Yes Eyes: Positive: Conjunctiva Clear Neck exam: Normal Respiratory: Positive: Lungs clear Cardiovascular Exam: Normal Abdomen Description: Positive: No Organomegaly, Soft. Negative: Nontender - mild suprapubic tenderness Bowel Sounds: Positive: Present Musculoskeletal Exam: Normal Neurological Exam: Normal Psychological Exam: Normal Skin Exam: Normal Complaint Female Dx - Differential Dx/Diagnosis Differential Diagnosis/HQI/PQRI: Renal Colic, Ureteral Stone, Urinary Tract Infection Provider Diagnosis: UTI (urinary tract infection) Discharge ED - Sign-Out/Discharge Documenting (check all that apply): Patient Departure All imaging exams completed and their final reports reviewed: No Studies - Discharge Plan Condition: Stable Disposition: HOME Prescriptions: Cephalexin CAP* [Keflex 500 CAP*] 500 mg PO QID #28 cap Phenazopyridine 200 mg (NF) [Pyridium 200 MG tab *] 200 mg PO TID PRN #6 tab PRN Reason: UTI symptoms Patient Education Materials: Urinary Tract Infection in Women (ED), Phenazopyridine (By mouth), Cephalexin (By mouth) Referrals: Amarilis Calhoun PA [Primary Care Provider] - - Billing Disposition and Condition Condition: STABLE Disposition: Home
== END 2019-07-16 16:10 | disposition home or self-care (01) ==
LOC: UCCORT 14:43
DX: N39.0 Urinary tract infection, site not specified (principal); Z88.8 Allergy status to other drugs, medicaments and biological substances; Z91.09 Other allergy status, other than to drugs and biological substances; Z87.891 Personal history of nicotine dependence
CPT/HCPCS: 81003; 87077; 87086; 87186; 99212; G0463